=== PATIENT | male | born 1980 | race Hispanic/Latino ===

== ENCOUNTER 2022-02-16 05:39 | Day surgery (SDC) | payer BC ==
[2022-02-13 08:46] VITALS: BMI 33.2
[2022-02-16] MEDS ORDERED: PROPOFOL 0 ML ONE (06:24)
[2022-02-16] MEDS ORDERED: Midazolam HCl 2 mg/2 ml Vial ONE ×2 (06:24→06:59)
[2022-02-16] MEDS ORDERED: Lidocaine 1% PF 5 ML VIAL ONE (06:25)
[2022-02-16] MEDS ORDERED: Rocuronium Bromide 10 MG/ML (10ML VIAL) ONE (06:25)
[2022-02-16] MEDS ORDERED: Ondansetron PF 4 MG/2 ML Vial ONE (06:25)
[2022-02-16] MEDS ORDERED: Fentanyl 100 MCG/2 ML VIAL ONE ×3 (06:25→09:49)
[2022-02-16] MEDS ORDERED: Dexamethasone 4 mg/ml Vial ONE (06:25)
[2022-02-16] MEDS ORDERED: Glycopyrrolate 0.2 MG/ML 5 ML SYRINGE ONE (06:25)
[2022-02-16] MEDS ORDERED: EPINEPHrine 1 MG/ML AMP ONE (06:28)
[2022-02-16] MEDS ORDERED: CEFAZOLIN 1 GM VIAL ONE (06:28)
[2022-02-16] MEDS ORDERED: Lidocaine 1% (PF) 30 ML VIAL ONE (06:28)
[2022-02-16] MEDS ORDERED: PROPOFOL 60 ML ONE ×2 (06:29→08:26)
[2022-02-16] MEDS ORDERED: Mupirocin 2% Ointment 22 GM Tube ONE (07:42)
[2022-02-16] MEDS ORDERED: PROPOFOL 40 ML ONE (07:50)
[2022-02-16] MEDS ORDERED: PROPOFOL 20 ML ONE (07:50)
== END 2022-02-16 11:00 | disposition home or self-care (01) ==
LOC: CSHSDC 05:39
PROVIDERS: ATTEND Otolaryngology Plastic Surgery within the Head & Neck
PROC: 0CB80ZZ Excision of Right Parotid Gland, Open Approach (ICD-10-PCS; principal; 2022-02-16)
DX: D11.0 Benign neoplasm of parotid gland (principal)
CPT/HCPCS: 87070; 87205; 88307; J0171; J0690; J1100; J2001; J2250; J2405; J2704; J3010